=== PATIENT | male | born 1955 | race Caucasian/White ===

== ENCOUNTER 2021-09-28 11:16 | Emergency (ER) | payer OTHER ==
[~2021-09-28] VITALS: Ht 180.3 cm; Wt 87.5 kg
[~2021-09-28 11:16] MED LIST: CEFTIN500 MG PO; CEFUROXIME500 MG PO; FLONASE16 G1 NS; FLONASE16 GM NS; OMEPRAZOLE40 MG PO; ZYRTEC10 MG PO
[2021-09-28] MEDS ORDERED: AMLODIPINE-OLM1 EAC1 PO (11:25)
[2021-09-28] MEDS ORDERED: XANAX2 MG PO (11:26)
[2021-09-28] MEDS ORDERED: PROTONIX20 MG PO (17:37)
[2021-09-28] MEDS ORDERED: CIPRO500 MG PO (17:37)
[2021-09-28] MEDS ORDERED: METRONIDAZOLE500 MG PO (17:37)
[2021-09-28] MEDS ORDERED: LEVSIN/SL0.125 MG SL (17:37)
== END 2021-09-28 17:52 | disposition home or self-care (01) ==
LOC: ER 11:16
DX: K57.92 Diverticulitis of intestine, part unspecified, without perforation or abscess without bleeding (principal); K29.70 Gastritis, unspecified, without bleeding; R10.32 Left lower quadrant pain

== ENCOUNTER → 2021-11-25 09:11 | Outpatient (CLI) | payer OTHER ==
[~2021-11-25 09:11] MED LIST changes: +AMLODIPINE-OLM1 EAC1 PO; +CIPRO500 MG PO; +LEVSIN/SL0.125 MG SL; +METRONIDAZOLE500 MG PO; +PROTONIX20 MG PO; +XANAX2 MG PO
== END | disposition home or self-care (01) ==
LOC: NUCLEAR 09:00
PROVIDERS: ATTEND Internal Medicine Cardiovascular Disease
DX: I10 Essential (primary) hypertension (principal)

== ENCOUNTER → 2022-08-03 11:01 | Outpatient (CLI) | payer OTHER | END | disposition home or self-care (01) | LOC: LAB 11:01 | PROVIDERS: ATTEND Internal Medicine Cardiovascular Disease | DX: N39.9 Disorder of urinary system, unspecified (principal); Z00.00 Encounter for general adult medical examination without abnormal findings; Z12.11 Encounter for screening for malignant neoplasm of colon; I25.10 Atherosclerotic heart disease of native coronary artery without angina pectoris; I11.9 Hypertensive heart disease without heart failure; E11.9 Type 2 diabetes mellitus without complications; E55.9 Vitamin D deficiency, unspecified; N40.0 Benign prostatic hyperplasia without lower urinary tract symptoms ==

== ENCOUNTER → 2023-06-13 13:39 | Outpatient (CLI) | payer OTHER | END | disposition home or self-care (01) | LOC: LAB 13:39 | PROVIDERS: ATTEND Radiology Diagnostic Radiology | DX: I71.21 Aneurysm of the ascending aorta, without rupture (principal) ==

== ENCOUNTER 2023-06-14 09:27 | Outpatient (CLI) | payer OTHER | END 2023-06-14 09:29 | disposition home or self-care (01) | LOC: TOM 09:27 | PROVIDERS: ATTEND Internal Medicine Cardiovascular Disease | DX: I35.1 Nonrheumatic aortic (valve) insufficiency (principal); I71.21 Aneurysm of the ascending aorta, without rupture | CPT/HCPCS: 71275; Q9965 ==

== ENCOUNTER 2024-01-13 13:54 | Emergency (ER) | payer OTHER ==
[~2024-01-13] VITALS: Ht 180.3 cm; Wt 93.9 kg
[2024-01-13] MEDS ORDERED: ACETAMINOPHEN 500 MG GEL..CAP PO ONE (19:15)
[2024-01-13] MEDS ORDERED: MEDROLPACK PO (20:46)
[2024-01-13] MEDS ORDERED: VOLTAREN ARTHRI20 GM TOP ×2 (20:59→21:00)
== END 2024-01-13 21:10 | disposition home or self-care (01) ==
LOC: ER 13:54
DX: M25.462 Effusion, left knee (principal); Z88.6 Allergy status to analgesic agent; I10 Essential (primary) hypertension; Z95.4 Presence of other heart-valve replacement